=== PATIENT | male | born 1950 | race Caucasian/White ===

== ENCOUNTER 2023-07-01 09:31 | Outpatient (REF) | payer OTHER, SELFPAY ==
--- NOTE | ~2023-07-01 | MR_ITS ---
EXAMINATION: MR BRAIN WITHOUT AND WITH CONTRAST CLINICAL INFORMATION: Trigeminal neuropathy COMPARISON: None TECHNIQUE: Multiplanar multisequence MR imaging of the brain was obtained without and following the administration of 8.5 mL Gadavist intravenous contrast. FINDINGS: There is no vascular compression of the cisternal segments of the trigeminal nerves. The CSF in Meckel's cave is preserved. The foramina ovale are normal. No cerebellopontine angle lesion is seen. There is no abnormal leptomeningeal enhancement corresponding to basilar cisterns. The third division of the trigeminal nerve is normal along its course in the environmental compliance engineer spaces. No marrow signal abnormality is seen within the mandible. There is no abnormal enhancement or edematous change corresponding to the second division of the trigeminal nerve within the infraorbital foramen or at the level of foramen rotundum. The cavernous sinuses opacify symmetrically. The orbits are normal. There is no acute infarct on diffusion-weighted imaging. No extra-axial collection or mass effect/herniation. Normal parenchymal signal characteristics. No hydrocephalus. The ventricles are normal in morphology and size. No abnormal parenchymal or extra-axial enhancement. The major flow voids at the skull base are preserved. The midline structures are normal. The cerebellar tonsils are normally positioned. The craniocervical junction is normal. Marrow signal is within normal limits. The visualized soft tissues are without significant abnormality. Small right and moderate left maxillary sinus retention cysts. MR/MR head/brain wo/w con IMPRESSION: No evidence of neurovascular compression of the cisternal trigeminal nerves or other abnormality along their expected extracranial course.
[2023-07-01] MEDS: gadobutroL 10 ML VIAL IVPUSH (10:15)
== END 2023-07-01 09:32 | disposition home or self-care (01) ==
LOC: HO.MRI 09:31
PROVIDERS: Visit Provider Psychiatry & Neurology Neurology
DX: G50.9 Disorder of trigeminal nerve, unspecified (principal)
CPT/HCPCS: 70553; A9585